=== PATIENT | female | born 1975 | race Two or more races ===

== ENCOUNTER → 2020-03-06 | Emergency (ER) | payer OTHER ==
[~2020-03-06] VITALS: Ht 165.1 cm; Wt 72.6 kg
[~2020-03-06] MED LIST: IBUPROFEN600 M1 ORAL
[2020-03-06 13:42] VITALS: BP 117/80
--- NOTE | 2020-03-06 13:44 | NUR ---
ED Nurse Note: Pt wheeled into ED with wheelchair d/t s/p fall today at 1150. Pt is AOx4, calm and cooperative. Per triage, pt slipped on a water spill; pt complains of pain on RT knee and lower back. Pt's VSS, on RA, afebrile on traige. Will continue to monitor.
--- NOTE | 2020-03-06 13:45 | NUR ---
Note daryarony in EDM - 03/06/20 at 1516 by JOSE ED Nurse Note: Pt wheeled into ED with wheelchair d/t s Pt wheeled into the ED with W/C for S/P fall that happened at her work today at 1150. pt slipped on a water spill. pt reports pain to right knee and lower back.
--- NOTE | 2020-03-06 14:09 | Emergency Room Report ---
History of Present Illness General Chief Complaint: Multiple Trauma/Fall Source: Patient Present Illness HPI Disclaimer: Please note that this report is being documented using [employer] technology. This can lead to erroneous entry secondary to incorrect interpretation by the dictating instrument. HPI: 44-year-old female presents for evaluation of right knee pain. Patient slipped on wet floor while at work falling onto her right knee complaining of immediate pain. No significant swelling. She had difficulty bearing weight on the knee but this is improving. She took Tylenol prior to arrival. Pain does not radiate. Denies instability in the joint. Denies injury to the hip, ankle or other body part. The left buttock is somewhat sore. Denies numbness or tingling in the lower extremities. No prior history of injury or surgical intervention Allergies: Coded Allergies: No Known Allergies (Unverified , 03/06/20) COVID-19 Screening Contact w/high risk pt: No Recent Travel to affected area: No Experienced COVID-19 symptoms?: No Patient History Last Menstrual Period: na Nursing Documentation-[facility] Past Medical History: No Stated History Review of Systems All Other Systems: negative except mentioned in HPI Physical Exam Vital Signs Date Time Temp Pulse Resp B/P (MAP) Pulse Ox O2 Delivery O2 Flow Rate FiO2 03/06/20 13:38 99.3 97 16 117/80 (92) 98 Room Air General: Awake and alert, no acute distress HEENT: NC/AT. EOMI. Resp: Normal work of breathing Skin: Intact. No abrasions, laceration or rash over the exposed skin MSK: Normal tone and bulk. Moving all extremities. No obvious deformity. Patella in anatomic position. No significant swelling. There is tender to palpation over the medial aspect of the right knee without deformity. No laxity on varus or valgus testing. No instability on Lockman test. Able to bear weight. Ambulating with a limp. Neuro: Awake and alert. Mentating appropriately Spine: There is no tenderness, step-off or deformity in the cervical, thoracic or lumbosacral spine. No significant paraspinal tenderness. Medical Decision Making Diagnostic Impression: Primary Impression: Knee contusion ER Course Is a 44-year-old female presenting for evaluation of knee pain after a fall. Concern for fracture or ligamentous injury to the knee. X-ray obtained. No obvious fracture dislocation noted. Patient was also complaining of some right- sided back pain though her pain is more centered around the right gluteus. No instability or significant pain in the hip to suggest fracture or dislocation. Likely a soft tissue injury; no indication for imaging at this time. Continue NSAIDs. Will give knee brace and a cane for stability as she opted against crutches. Referred to orthopedics and PMD. Discussed reasons to return to the emergency department. She understands and agrees with this treatment plan. Other X-Ray Diagnostic Results Other X-Ray Diagnostic Results : X-Ray ordered: Right knee # of Views/Limited Vs Complete: 3 View Indication: Pain EP Interpretation: Yes Interpretation: no dislocation, no soft tissue swelling, no fractures Impression: No acute disease Electronically Signed by: Electronically signed by Dr. Samuel Sanford Last Vital Signs Date Time Temp Pulse Resp B/P (MAP) Pulse Ox O2 Delivery O2 Flow Rate FiO2 03/06/20 13:38 99.3 97 16 117/80 (92) 98 Room Air Disposition: HOME, SELF-CARE Condition: Stable Scripts Ibuprofen* (MOTRIN*) 600 Mg Tablet 600 MG ORAL Q6H PRN for For Pain, #30 TAB 0 Refills Prov: Samuel Sanford MD 03/06/20 Samuel Sanford MD Mar 06, 2020 14:09
--- NOTE | 2020-03-06 14:43 | Diagnostic Imaging Report ---
Indication: Knee pain Technique: 3 views of the right knee Comparison: None Findings: Bone mineralization within normal limits. No acute fractures identified. Alignment is maintained. There is mild medial compartment joint space narrowing. No suprapatellar joint effusion. No radiopaque foreign body. Impression: No acute osseous abnormality.
[2020-03-06 15:11] VITALS: BP 117/80
--- NOTE | 2020-03-06 15:11 | NUR ---
ER DISCHARGE NOTE: Patient is cleared to be discharged per ERMD, pt is aox4, on room air, with stable vital signs. pt was given dc and prescription instructions, pt was able to verbalize understanding, pt id band removed. pt took all belongings.
== END | disposition home or self-care (01) ==
LOC: EMR 14:30
DX: S80.01XA Contusion of right knee, initial encounter (principal); W19.XXXA Unspecified fall, initial encounter; Y92.9 Unspecified place or not applicable
CPT/HCPCS: 99283